=== PATIENT | female | born 1940 | race Caucasian/White ===

== ENCOUNTER → 2021-08-06 | Outpatient (CLI) | payer MEDICARE ==
[2021-08-07 14:14] LABS: RHEUMATOID ARTHRITIS FACTOR <10.0 IU/mL (<14.0)
== END ==
LOC: RAD 12:21
PROVIDERS: Internal Medicine
DX: M19.042 Primary osteoarthritis, left hand (principal); M19.041 Primary osteoarthritis, right hand; M25.50 Pain in unspecified joint
CPT/HCPCS: 36415; 73130; 83520; 85652; 86140; 86200; 86431